=== PATIENT | female | born 2000 | race Caucasian/White ===

== ENCOUNTER 2021-12-30 19:00 | Emergency (ER) | payer BC ==
[2021-12-30 19:12] VITALS: BP 116/65
[2021-12-30] MEDS ORDERED: TETANUS/DIPHTHERIA/PERTUSSIS 0.5 ML SYRINGE IM ONE (20:01)
--- NOTE | 2021-12-30 20:15 | ED Physician Documentation ---
History of Present Illness - Stated complaint Stated Complaint: LT THUMB LAC/INJ - Chief complaint Chief Complaint: Laceration - Additonal information Additional information: 21-year-old female here with a left thumb laceration sustained when using a knife to prepare dinner. Unknown last tetanus. Patient is right-hand dominant Review of Systems Constitutional: reports: Reviewed and negative Nose: reports: Rhinorrhea / runny nose Throat: reports: Reviewed and negative Cardiac: reports: Reviewed and negative Skin: reports: Laceration (s) PD PAST MEDICAL HISTORY - Present Medications Home Medications: Ambulatory Orders Medication Instructions Recorded Confirmed No Known Home Medications 12/30/21 12/30/21 - Allergies Allergies/Adverse Reactions: Allergies Allergy/AdvReac Type Severity Reaction Status Date / Time No Known Drug Allergies Allergy Verified 12/30/21 19:13 PD ED PE EXPANDED - Extremities Extremities: Left finger(s) (1.5 cm laceration dorsum of left thumb. Bleeding controlled with pressure. Normal flexion extension at DIP. Sensation preserved.) Results - Vitals Vitals: Vital Signs - 24 hr 12/30/21 19:09 Temperature 36.0 C L Heart Rate 64 Respiratory 16 Rate Blood Pressure 116/65 O2 Saturation 100 Oxygen O2 Source Room air Procedures - Laceration (location) thumb laceration Length in cm: 1.5 Wound type: Linear, Superficial Neurovascular status: Sensory intact, Motor intact Tendon involvement: Tendon intact Wound preparation: Irrigated copiously NS Skin layer closure: Dermabond Other: Patient tolerated well, Tetanus booster given PD MEDICAL DECISION MAKING - ED course Complexity details: considered differential, d/w patient ED course: Superficial laceration of the left thumb closed with skin glue. No evidence of neurovascular or tendon injury. Tetanus updated today in the ER. Routine wound care and emergent return precautions otherwise discussed. Departure - Departure Disposition: 01 Home, Self Care Clinical Impression: Laceration of left thumb Qualifiers: Encounter type: initial encounter Damage to nail status: without damage Foreign body presence: without foreign body Qualified Code(s): S61.012A - Laceration without foreign body of left thumb without damage to nail, initial encounter Condition: Stable Record reviewed to determine appropriate education?: Yes Instructions: ED Laceration Ext Skin Glue Comments: Valadez your laceration was closed with skin glue. This will wear away over the next 5 to 7 days. No specific treatment is necessary. Do not apply antibiotic ointment will cause the glue to wear away quicker. Your tetanus was updated today and should be good for the next 7 to 10 days. If you develop some swelling, redness milky drainage or have increased pain then please return immediately to the ER for second evaluation.
== END 2021-12-30 20:21 | disposition home or self-care (01) ==
LOC: ED 19:00
DX: S61.012A Laceration without foreign body of left thumb without damage to nail, initial encounter (principal); W26.0XXA Contact with knife, initial encounter; Y93.G3 Activity, cooking and baking; Z23 Encounter for immunization
CPT/HCPCS: 12001; 90471; 99283